=== PATIENT | male | born 1990 | race Caucasian/White ===

== ENCOUNTER 2016-06-04 14:43 | Emergency (ER) | payer MEDICAID ==
[2016-06-04] MEDS ORDERED: KETOROLAC 60 MG/2 ML VIAL IM ONE (16:41)
[2016-06-04] MEDS ORDERED: ORPHENADRINE 60 MG/2 ML AMP ONE (16:41)
== END 2016-06-04 18:49 | disposition home or self-care (01) ==
LOC: ER 14:43
DX: S29.012A Strain of muscle and tendon of back wall of thorax, initial encounter (principal); S39.012A Strain of muscle, fascia and tendon of lower back, initial encounter; F17.210 Nicotine dependence, cigarettes, uncomplicated
CPT/HCPCS: 72072; 72100; 96372